=== PATIENT | female | born 1980 | race American Indian/Alaskan Native ===

== ENCOUNTER 2018-03-26 13:32 | Emergency (ER) | payer OTHER ==
[2018-03-26 14:55] LABS: Basophils % (Auto) 0.4 % (0.0-1.8); Eosinophils % (Auto) 0.4 % (0.0-4.3); Hematocrit 42.5 % (30.3-42.9); Hemoglobin 14.1 gm/dl (10.1-14.3); Lymphocytes % (Auto) 21.6 % (13.4-35.0); Mean Corpuscular HGB Conc 33 % (30-34); Mean Corpuscular Hemoglobin 33 pg (28-32); Mean Corpuscular Volume 100 fl (79-97); Monocytes # (Auto) 0.9 K/mm3 (0.0-0.8); Platelet Count 245 K/mm3 (140-440); Red Blood Count 4.25 M/mm3 (3.65-5.03); Red Cell Distribution Width 11.8 % (13.2-15.2)
[2018-03-26 15:03] LABS: Alanine Aminotransferase 26 units/L (7-56); BUN/Creatinine Ratio 13; Blood Urea Nitrogen 8 mg/dL (7-17); Calcium 8.9 mg/dL (8.4-10.2); Hemolysis Index 11; Lipase 21 units/L (13-60)
[2018-03-26 16:02] LABS: Bilirubin,Urine NEG (Negative); Blood,Urine NEG (Negative); Mucus,Urine 3+ /HPF; Protein,Urine <15 mg/dL mg/dL (Negative)
[2018-03-26 16:04] LABS: Color,Urine Dark Yellow (Yellow)
[2018-03-26] MEDS ORDERED: ZOFRAN ODT PO ONE (17:37)
[2018-03-26] MEDS ORDERED: NORCO 5/325 PO ONE ×2 (17:39→21:29)
--- NOTE | 2018-03-26 17:42 | Emergency Department Report ---
ED Abdominal Pain HPI - General Chief Complaint: Abdominal Pain Stated Complaint: ABD PAIN/VOMITING BLOOD Time Seen by Provider: 03/26/18 17:24 Source: patient Mode of arrival: Ambulatory Limitations: No Limitations - History of Present Illness Initial Comments: 37-year-old female past medical history ovarian cysts, removal 2015 presents with complaint of lower abdominal pain nausea and vomiting since yesterday. Patient is awake alert and oriented 3. Denies any bloody diarrhea loose watery stools or recent antibiotic use. Patient denies any recent travel. MD Complaint: abdominal pain Onset/Timin -: days(s) Location: LLQ Severity: moderate Severity scale (0 -10): 4 Quality: aching Improves With: nothing Worsens With: nothing Associated Symptoms: nausea - Related Data Home Medications Medication Instructions Recorded Confirmed Last Taken Biotin [Ze Biotin] 10,000 mcg PO DAILY 03/30/15 04/01/15 03/29/15 Cholecalciferol Vit D3 [Vitamin D3] 1,000 unit PO QDAY 03/30/15 04/01/15 Previous Rx's Medication Instructions Recorded Last Taken Type Ibuprofen [Motrin 600 MG tab] 800 mg PO Q6H PRN #30 tablet 04/01/15 Unknown Rx Promethazine [Phenergan] 25 mg PO Q6H PRN #15 tablet 04/01/15 Unknown Rx oxyCODONE /ACETAMINOPHEN [Percocet 1 - 2 tab PO Q4H PRN #30 tablet 04/01/15 Unknown Rx 5/325 mg] Ciprofloxacin HCl [Cipro] 500 mg PO BID #20 tablet 03/26/18 Unknown Rx HYDROcodone/ACETAMINOPHEN [[place] 1 each PO Q8H PRN #14 tablet 03/26/18 Unknown Rx 5-325 Tablet] Ondansetron [Zofran Odt] 4 mg PO Q8H PRN #12 tab.rapdis 03/26/18 Unknown Rx metroNIDAZOLE [Flagyl] 500 mg PO Q12HR #20 tab 03/26/18 Unknown Rx Allergies Allergy/AdvReac Type Severity Reaction Status Date / Time Penicillins Allergy Hives Verified 03/26/18 13:48 shellfish derived Allergy Anaphylaxis Verified 03/26/18 13:48 vancomycin Allergy Hives Verified 03/26/18 13:48 ED Review of Systems ROS: Stated complaint: ABD PAIN/VOMITING BLOOD Other details as noted in HPI Constitutional: denies: chills, fever Eyes: denies: eye pain, eye discharge, vision change ENT: denies: ear pain, throat pain Respiratory: denies: cough, shortness of breath, wheezing Cardiovascular: denies: chest pain, palpitations Endocrine: no symptoms reported Gastrointestinal: abdominal pain. denies: nausea, diarrhea Genitourinary: denies: urgency, dysuria, discharge Musculoskeletal: denies: back pain, joint swelling, arthralgia Skin: denies: rash, lesions Neurological: denies: headache, weakness, paresthesias Psychiatric: denies: anxiety, depression Hematological/Lymphatic: denies: easy bleeding, easy bruising ED Past Medical Hx - Past Medical History Previous Medical History?: No Hx Headaches / Migraines: Yes (migraines) - Surgical History Additional Surgical History: ovarian cyst removed - Social History Smoking Status: Never Smoker Substance Use Type: None - Medications Home Medications: Home Medications Medication Instructions Recorded Confirmed Last Taken Type Biotin [Ze Biotin] 10,000 mcg PO DAILY 03/30/15 04/01/15 03/29/15 History Cholecalciferol Vit D3 [Vitamin D3] 1,000 unit PO QDAY 03/30/15 04/01/15 History Ibuprofen [Motrin 600 MG tab] 800 mg PO Q6H PRN #30 tablet 04/01/15 Unknown Rx Promethazine [Phenergan] 25 mg PO Q6H PRN #15 tablet 04/01/15 Unknown Rx oxyCODONE /ACETAMINOPHEN [Percocet 1 - 2 tab PO Q4H PRN #30 tablet 04/01/15 Unknown Rx 5/325 mg] Ciprofloxacin HCl [Cipro] 500 mg PO BID #20 tablet 03/26/18 Unknown Rx HYDROcodone/ACETAMINOPHEN [[place] 1 each PO Q8H PRN #14 tablet 03/26/18 Unknown Rx 5-325 Tablet] Ondansetron [Zofran Odt] 4 mg PO Q8H PRN #12 tab.rapdis 03/26/18 Unknown Rx metroNIDAZOLE [Flagyl] 500 mg PO Q12HR #20 tab 03/26/18 Unknown Rx ED Physical Exam - General Limitations: No Limitations General appearance: alert, in no apparent distress - Head Head exam: Present: atraumatic, normocephalic - Eye Eye exam: Present: normal appearance - ENT ENT exam: Present: mucous membranes moist - Neck Neck exam: Present: normal inspection - Respiratory Respiratory exam: Present: normal lung sounds bilaterally. Absent: respiratory distress - Cardiovascular Cardiovascular Exam: Present: regular rate, normal rhythm. Absent: systolic murmur, diastolic murmur, rubs, gallop - GI/Abdominal GI/Abdominal exam: Present: tenderness (some left lower quadrant tenderness on palpation of left lower abdomen), normal bowel sounds - Extremities Exam Extremities exam: Present: normal inspection - Back Exam Back exam: Present: normal inspection - Neurological Exam Neurological exam: Present: alert, oriented X3 - Psychiatric Psychiatric exam: Present: normal affect, normal mood - Skin Skin exam: Present: warm, dry, intact, normal color. Absent: rash ED Course Vital Signs 03/26/18 03/26/18 03/26/18 13:48 16:49 18:34 Temperature 98.1 F 97.6 F Pulse Rate 92 H 73 Respiratory 18 18 16 Rate Blood Pressure 129/78 136/72 O2 Sat by Pulse 100 100 Oximetry ED Medical Decision Making - Lab Data Result diagrams: 03/26/18 14:15 03/26/18 14:15 - Medical Decision Making A/P: Possible sigmoid colitis or abdominal pain 1- ultrasound pelvic unremarkable, CT suggestive of sigmoid colitis area. this is consistent with patient's left lower quadrant pain on exam 2- Pt tolerating by mouth fluid without difficulty 3- Empiric course of Cipro and Flagyl 10 days, bland diet 4- patient advised to return to the ED if she develops worsened pain and bloody stools fevers and chills inability to tolerate anything by mouth Critical care attestation.: If time is entered above; I have spent that time in minutes in the direct care of this critically ill patient, excluding procedure time. ED Disposition Clinical Impression: Abdominal pain Qualifiers: Abdominal location: left lower quadrant Qualified Code(s): R10.32 - Left lower quadrant pain Disposition: DC-01 TO HOME OR SELFCARE Is pt being admited?: No Does the pt Need Aspirin: No Condition: Stable Instructions: Abdominal Pain (ED), Infectious Colitis (ED), Clear Liquid Diet ( ED), Diet for Ulcers and Gastritis (ED) Prescriptions: Ciprofloxacin HCl [Cipro] 500 mg PO BID #20 tablet HYDROcodone/ACETAMINOPHEN [[place] 5-325 Tablet] 1 each PO Q8H PRN #14 tablet PRN Reason: Pain metroNIDAZOLE [Flagyl] 500 mg PO Q12HR #20 tab Ondansetron [Zofran Odt] 4 mg PO Q8H PRN #12 tab.rapdis PRN Reason: Nausea Referrals: [facility] [Provider Group] - 3-5 Days [facility] [Provider Group] - 3-5 Days Forms: Accompanied Note, Work/School Release Form(ED) Time of Disposition: 21:07
--- NOTE | 2018-03-26 19:34 | Ultrasound Report ---
FINAL REPORT EXAM: US PELVIS DUPLEX DOPPLER COMP HISTORY: need doppler left adnexal pain ? ovarian flow TECHNIQUE: Transabdominal and transvaginal sonography of the pelvis. Duplex Doppler performed. PRIORS: None. FINDINGS: The uterus measures 10.5 x 4.8 x 6.0 cm and appears grossly unremarkable. The endometrial stripe is within normal limits and measures 6 mm in AP dimension. The right ovary measures 4.1 x 2.0 x 3.3 cm and contains an ovoid, cystic focus measuring 1.8 cm. The left ovary measures 3.0 x 1.5 x 3.4 cm and is grossly unremarkable. Duplex Doppler shows appropriate blood flow present in the ovaries bilaterally. No adnexal masses. Small-moderate amount of nonspecific, free fluid in pelvic cul-de-sac. IMPRESSION: 1. Probable physiologic cystic change in the right ovary, and possible sequelae of ovarian follicle or cyst rupture. 2. Otherwise, unremarkable.
--- NOTE | 2018-03-26 19:34 | Ultrasound Report ---
FINAL REPORT EXAM: US TRANSVAGINAL HISTORY: left adnexal pain TECHNIQUE: Transabdominal and transvaginal sonography of the pelvis. Duplex Doppler was performed. PRIORS: None. FINDINGS: The uterus measures 10.5 x 4.8 x 6.0 cm and appears grossly unremarkable. The endometrial stripe is within normal limits and measures 6 mm in AP dimension. The right ovary measures 4.1 x 2.0 x 3.3 cm and contains an ovoid, cystic focus measuring 1.8 cm. The left ovary measures 3.0 x 1.5 x 3.4 cm and is grossly unremarkable. Duplex Doppler shows appropriate blood flow present in the ovaries bilaterally. No adnexal masses. Small-moderate amount of nonspecific, free fluid in pelvic cul-de-sac. IMPRESSION: 1. Probable physiologic cystic change in the right ovary, and possible sequelae of ovarian follicle or cyst rupture. 2. Otherwise, unremarkable.
--- NOTE | 2018-03-26 20:53 | Cat Scan Report ---
FINAL REPORT PROCEDURE: CT ABDOMEN PELVIS WO CON TECHNIQUE: Computerized axial tomography of the abdomen and pelvis was performed without intravenous contrast. This study is performed without intravascular contrast material and its sensitivity for abdominal and pelvic pathology, including neoplasms, inflammation, abscess, free fluid, thrombosis, arterial dissection and infarction, is reduced compared with a contrast enhanced study. HISTORY: left lower quad pain COMPARISON: No prior studies are available for comparison. FINDINGS: Lower Lung [place]: No focal abnormality seen. Upper Abdomen: The liver, the gallbladder, the adrenal glands, the unenhanced images of the pancreas and spleen are unremarkable. Kidneys, Ureters and Urinary bladder: Kidneys and ureters are unremarkable. Urinary bladder is nearly empty and difficult to characterize. No gross abnormality is visualized. Retroperitoneum: Abdominal aorta appears normal. Nonspecific subcentimeter lymph nodes are seen in the retroperitoneum. No pathologically enlarged lymph nodes are identified. Bowel: . There is no evidence of bowel obstruction. No free intraperitoneal gas is visualized. On axial images 128-139 nix of the sigmoid colon are minimally ill-defined. I cannot exclude an inflammatory process, nonspecific colitis. Correlation with physical exam recommended. The colon is otherwise unremarkable. Visualized portions of the appendix in the right lower quadrant show no abnormality. Reproductive organs: Uterus is mildly deviated to the right of midline. Small amount of nonspecific free fluid is seen in the cul-de-sac. No abnormal adnexal masses are seen. Other: No acute bony abnormalities are seen. IMPRESSION: Slight ill definition nix of a portion of the sigmoid colon as described. I cannot exclude a mild nonspecific colitis. Correlation with physical exam recommended. Please see above image reference numbers. Bowel loops otherwise unremarkable. Small amount of nonspecific free fluid is seen in the cul-de-sac. No other abnormalities are identified..
[2018-03-26] MEDS ORDERED: LEVAQUIN PO ONE (21:08)
[2018-03-26] MEDS ORDERED: FLAGYL PO ONE (21:09)
[2018-03-26 21:35] VITALS: BP 115/67
== END 2018-03-26 21:35 | disposition home or self-care (01) ==
LOC: ED 13:32
DX: R10.32 Left lower quadrant pain (principal); G43.909 Migraine, unspecified, not intractable, without status migrainosus; Z88.0 Allergy status to penicillin; Z88.1 Allergy status to other antibiotic agents
CPT/HCPCS: 36415; 74176; 76830; 80053; 81001; 83690; 84703; 85025; 93975; Q0162